=== PATIENT | female | born 1950 | race Caucasian/White ===

== ENCOUNTER 2017-10-15 07:42 | Day surgery (SDC) | payer OTHER ==
--- NOTE | 2017-10-12 15:32 | HISTORY AND PHYSICAL E ---
History and Physical NAME: NANCY PEARCE : 1950 AGE: 66Y ADMITTED: 10/15/2017 ROOM: CHIEF COMPLAINT: Diarrhea. The patient has diarrhea and presented for colon screening. HISTORY: The patient is 66, presented with diarrhea for colon screening, abdominal pain. PAST MEDICAL HISTORY: She has a history of melanoma. PAST SURGICAL HISTORY: Colonoscopy, 2007. MEDICATIONS: 1. The patient is on medication for diabetes. 2. Prilosec. 3. Singulair. SOCIAL HISTORY: . Does not smoke. Does not drink. FAMILY HISTORY: Father has heart disease. Mom is alive with gallbladder disease, heart disease. REVIEW OF SYSTEMS: CARDIAC: Hypertension. ENDOCRINE: Diabetes. RESPIRATORY: Asthma. Sleep apnea, CPAP. HEAD, EYES, EARS, NOSE, THROAT: Eye glasses. History of melanoma, skin on the head, lymph nodes, stage III. GASTROINTESTINAL: Colon screening, diarrhea, abdominal pain. PHYSICAL EXAMINATION: GENERAL: 66. Weight 205. VITAL SIGNS: Blood pressure 130/70, pulse is 80, respirations are 18, temp is 98. HEAD, EYES, EARS, NOSE, THROAT: Normal. NECK: Supple. LUNGS: Clear. ABDOMEN: Soft. NEUROLOGIC: Exam negative. CONCLUSION: 1. Colon screening. 2. The patient has history of diabetes, nonspecific. PLAN: Colonoscopy. Admit on 10/15. DICTATING PHYSICIAN: PATRICIA HERNANDEZ M.D. [id number] PHY#: [id number] ID: [id number] JOB#: [id number] ACCT: [id number] cc:PATRICIA HERNANDEZ M.D. >
[~2017-10-15 07:42] MED LIST: EPINEPHRINE INJ 1 MG/10 ML DISP.SYRIN ONE; FENTANYL CITRATE INJ/PF 100 MCG/2 ML AMPUL ONE; FLUMAZENIL INJ 0.5 MG/5 ML VIAL ONE; GLUCAGON,HUMAN RECOMB 1 MG INJ ONE; GLYCOPYRROLATE INJ 0.4 MG/2 ML VIAL ONE; NALOXONE HCL INJ/PF 0.4 MG/1 ML SDV ONE; ONDANSETRON HCL INJ/PF 4 MG/2 ML SDV ONE
[2017-10-15] MEDS: MIDAZOLAM 2 MG/2 ML INJ ONE ×2 (08:08→08:12)
[2017-10-15 09:39] VITALS: BP 109/39
--- NOTE | 2017-10-15 11:52 | DISCHARGE SUMMARY E ---
Discharge Summary NAME: NANCY PEARCE : 1950 AGE: 66Y ADMITTED: 10/15/2017 DISCHARGED: 10/15/2017 The patient, 66, known to have , fibroid. Melanoma. Patient has sleep apnea, CPAP; hysterectomy; reflux. She does have MS. Underwent colonoscopy today, shows no cancer; benign-looking polyp sigmoid 3 mm biopsy, removed; diverticulosis sigmoid descending colon; mild diverticulosis ascending colon. DISCHARGE PLAN: Soft diet. Full liquid today. Soft, low-residue for 3 days. Awaiting biopsy results. Consider followup colonoscopy 2 years. DICTATING PHYSICIAN: PATRICIA HERNANDEZ M.D. [id number] PHY#: [id number] ID: [id number] JOB#: [id number] ACCT: [id number] cc:PATRICIA HERNANDEZ M.D. >
--- NOTE | 2017-10-15 11:54 | OPERATIVE REPORT E ---
Operative Report NAME: NANCY PEARCE : 1950 AGE: 66Y DATE OF SURGERY: 10/15/2017 ROOM: PREOPERATIVE DIAGNOSIS: COLON SCREENING. POSTOPERATIVE DIAGNOSES: 1. EXTERNAL HEMORRHOID 2. SMALL, 2-MM, BENIGN-LOOKING SIGMOID POLYP. 3. SIGMOID DESCENDING COLON DIVERTICULOSIS. 4. ASCENDING COLON DIVERTICULOSIS. OPERATION: Colonoscopy to the cecum. SURGEON: PATRICIA HERNANDEZ M.D. ANESTHESIA: Versed 4, fentanyl 100. TISSUE REMOVED OR ALTERED: Biopsy sigmoid polyp. PROCEDURE: Rectal exam: External hemorrhoid, small sigmoid 2-mm polyp removed by biopsy, scattered diverticulosis sigmoid descending colon. Transverse colon redundant, normal. Ascending colon: Occasional diverticulosis. Cecum normal. Scope withdrawn from cecum, ascending, transverse, descending, sigmoid, all the way to the rectum. CONCLUSION: Benign-looking polyp sigmoid 2-3 mm biopsy removed. Diverticulosis sigmoid descending colon. Recommend followup colonoscopy after 2 years. Oncologist: Nikki Pruitt. Patient plan. Awaiting biopsy. Consider followup colonoscopy 2 years. Patient does have history of melanoma, sleep apnea, CPAP. DICTATING PHYSICIAN: PATRICIA HERNANDEZ M.D. [id number] PHY#: [id number] ID: [id number] JOB#: [id number] ACCT: [id number] cc:PATRICIA HERNANDEZ M.D. >
== END 2017-10-15 09:42 | disposition home or self-care (01) ==
LOC: END 07:42
PROVIDERS: ATTEND Specialist
PROC: 0DBN8ZX Excision of Sigmoid Colon, Via Natural or Artificial Opening Endoscopic, Diagnostic (ICD-10-PCS; principal; 2017-10-15 08:00)
DX: Z12.11 Encounter for screening for malignant neoplasm of colon (principal); K64.4 Residual hemorrhoidal skin tags; K57.30 Diverticulosis of large intestine without perforation or abscess without bleeding; D12.5 Benign neoplasm of sigmoid colon; I10 Essential (primary) hypertension; E11.9 Type 2 diabetes mellitus without complications; J45.909 Unspecified asthma, uncomplicated; Z79.899 Other long term (current) drug therapy; Z85.820 Personal history of malignant melanoma of skin
CPT/HCPCS: 45380; 82962; 88305 ×2; J2250; J3010; J1610; J2405; J0171; J2310; J3490

== ENCOUNTER → 2018-11-02 | Outpatient (CLI) | payer MEDICARE, BC ==
--- NOTE | 2018-11-02 11:46 | WOMENS IMAGING REPORT ---
EXAM DESCRIPTION: BONE DENSITY HIP/SPINE COMPLETED DATE/TIME: 11/02/2018 10:32 am REASON FOR STUDY: BONE DENSITY TEST/M81.0 Z12.31 ENCNTR SCREEN MAMMOGRAM FOR MALIGNANT NEOPLASM OF ARDEN M81.0 AGE-RELATED OSTEOPOROSIS W/O CURRENT PATHOLOGICAL FRAC COMPARISON: None. TECHNIQUE: Dual-Energy X-ray Absorptiometry (DEXA) of the AP Spine and Hip. LIMITATIONS: None. FINDINGS: LUMBAR SPINE: The bone mineral density (BMD) measured from L1-L4 in the AP projection correlates with a T-score of -1.9, which is osteopenic as defined by the World Health Organization. HIP: The bone mineral density (BMD) measured in the left total hip correlates with a T-score of -0.3, whic h is normal as defined by the World Health Organization. IMPRESSION: 1. LUMBAR SPINE: Osteopenic 2. HIP: Normal COMMENT: The World Health Organization defines low BMD as follows: T-score: Normal: Greater than -1.0 Osteopenia: Between -1.0 and -2.5 Osteoporosis: Less than -2.5 without fractures Established osteoporosis: Less than -2.5 with fractures In general, you may wish to consider: Diagnosis Treatment Follow-up DEXA Normal BMD Prevention 2-3 years Osteopenia Prevention/Therapy 1-2 years Osteoporosis Therapy Yearly TECHNICAL DOCUMENTATION: JOB ID: [id number] [employer]- All Rights Reserved Reading location - IP/workstation name: [email or web address]
--- NOTE | 2018-11-02 13:25 | WOMENS IMAGING REPORT ---
EXAM DESCRIPTION: 3D SCREENING MAMMO BILAT COMPLETED DATE/TIME: 11/02/2018 10:32 am REASON FOR STUDY: BILATERAL SCREENING MAMMO 3D/Z12.31 Z12.31 ENCNTR SCREEN MAMMOGRAM FOR MALIGNANT NEOPLASM OF ARDEN M81.0 AGE-RELATED OSTEOPOROSIS W/O CURRENT PATHOLOGICAL FRAC COMPARISON: 2011 TECHNIQUE: Standard craniocaudal and mediolateral oblique views of each breast recorded using digita l acquisition and breast tomosynthesis. LIMITATIONS: None. FINDINGS: No masses, calcifications or architectural distortion. No areas of suspicion. Read with the assistance of CAD. .[facility] - R2 Cenova Version 1.3 .[facility] - R2 Cenova Version 1.3 .[facility] - R2 Cenova Version 2.4 .[facility] [place] Cenova Version 2.4 .[facility] - R2 Occupational Therapy Department Chair Version 9.2 IMPRESSION: NORMAL MAMMOGRAM. BIRADS 1. BREAST DENSITY: b. There are scattered areas of fibroglandular density. BIRAD: 1 NEGATIVE RECOMMENDATION: ROUTINE SCREENING Please continue yearly bilateral screening mammography/tomosynthesis in September 2019 COMMENT: The patient has been notified of the results by letter per MQSA requirements. Additional no tification policies are in place for contacting patient with suspicious or incomplete findings. Quality ID #[id number]: The [employer] recommends an annual screening mammogram for women aged 40 years or over. This facility utilizes a reminder system to ensure that all patients receive reminder letters, and/or direct phone calls for appointments. This includes reminders for routine scr eening mammograms, diagnostic mammograms, or other Breast Imaging Interventions when appropriate. Th is patient will be placed in the appropriate reminder system. The [employer] (ACR) has developed recommendations for screening MRI of the breast s in certain patient populations, to be used in conjunction with mammography. Breast MRI surveillanc e may be appropriate for women with more than 20% lifetime risk of developing breast cancer as deter mined by genetic testing, significant family history of the disease, or history of mantle radiation f or Hodgkins Disease. ACR Practice Guidelines 2008. DBT Technology DBT is a type of tomographic mammography. With conventional mammography, overlapping breast tissue ma y make lesions difficult to detect, even with good compression. DBT uses an x-ray tube that rotates a round the breast, taking images at different angles. These images are then combined to create thin sl ices of the breast that the radiologist can view as a 3D reconstruction. The [employer] unit can perform full-field digital mammograms (2D imaging); or DBT (3D imaging); or both, in a combination mode that quickly performs both the mammogram and the tomosynthesis scan while the breast is still compressed. PQRS 6045F: Fluoroscopic imaging is not utilized for breast tomosynthesis. TECHNICAL DOCUMENTATION: FINDING NUMBER: (1) ASSESSMENT: (1) JOB ID: [id number] [employer] kit- All Rights Reserved Reading location - IP/workstation name: [email or web address]
== END ==
LOC: WI 09:20
PROVIDERS: ATTEND Internal Medicine
DX: Z12.31 Encounter for screening mammogram for malignant neoplasm of breast (principal); M81.0 Age-related osteoporosis without current pathological fracture
CPT/HCPCS: 77063; 77067; 77080